=== PATIENT | female | born 1970 | race Caucasian/White ===

== ENCOUNTER 2019-05-20 01:57 | Emergency (ER) | payer BC ==
[2019-05-20] MEDS ORDERED: Acetaminophen/HYDROcodone 325-5 MG Tab PO ONE (01:58)
[2019-05-20] MEDS ORDERED: Ketorolac 60 MG/2 ML SDV IM ONE (02:23)
[2019-05-20] MEDS ORDERED: methylPREDNISolone Sodium Succinate 125 MG/2 ML SDV IM STA (02:23)
[2019-05-20] MEDS ORDERED: Ondansetron 4 MG Tab.DIS PO ONE (02:23)
[2019-05-20] MEDS ORDERED: Morphine 4 MG/ML Syringe IM ONE (02:23)
[2019-05-20] MEDS ORDERED: Take Home: Acetaminophen/HYDROcodone 325-5 MG, 2 Tab Pack PO ONE (02:28)
[2019-05-20] MEDS ORDERED: Morphine 2 MG/ML Syringe IM ONE (02:32)
--- NOTE | 2019-05-20 02:32 | EDM.PDOC ---
ED HPI GENERAL MEDICAL PROBLEM - General Chief Complaint: General Stated Complaint: PINCHED NERVE IN BACK Time Seen by Provider: 05/20/19 02:15 Source of Information: Reports: Patient History Limitations: Reports: No Limitations - History of Present Illness INITIAL COMMENTS - FREE TEXT/NARRATIVE: This patient is a 48 year old female that presents to the ER. Patient reports that over the last couple of days she has had some pain in her lower central back that radiates a numb sensation pain to the bilateral hip/buttock region and into the right thigh region to the right frontal leg. Patient reports that the pain this morning and last night has been much worse. She reports just driving in a car this evening for 4 hours. She reports during this and afterwards the pain was worse. Patient is in standing position and does appear to be in pain. Patient reports she also has had some right foot pain the last week and has been favoring the right foot and believes this is the reason for her back pain due to walking to favor that foot. She denies street, dizziness, n, v , d, f, urinary/bowel incontinence or changes. She denies numbness/tingling sensation around the rectum to indicate saddle parathesia. 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 Right Lower Back Pain Score (Numeric/FACES): 8 - Related Data Allergies Allergy/AdvReac Type Severity Reaction Status Date / Time Sulfa (Sulfonamide Allergy Hives Verified 05/20/19 02:01 Antibiotics) Home Meds: Home Meds Albuterol [Ventolin 2 MG/5 ML] 1 ampule INH ASDIRECTED PRN 05/20/19 [History] Escitalopram Oxalate [Lexapro] 30 mg PO DAILY 05/20/19 [History] Fluticasone/Salmeterol [Advair 250-50 Diskus] 1 inh INH ASDIRECTED 05/20/19 [ History] Methylphenidate HCl [Ritalin] 30 mg PO DAILY 05/20/19 [History] Montelukast Sodium [Singulair] 10 mg PO DAILY 05/20/19 [History] Omeprazole Magnesium [Prilosec Otc] 20 mg PO DAILY 05/20/19 [History] Valsartan [Diovan] 160 mg PO DAILY 05/20/19 [History] buPROPion [Wellbutrin SR] 450 mg PO DAILY 05/20/19 [History] Past Medical History Cardiovascular History: Reports: Hypertension Respiratory History: Reports: Asthma Gastrointestinal History: Reports: Diverticulosis Psychiatric History: Reports: Depression - Past Surgical History GI Surgical History: Reports: Other (See Below) Other GI Surgeries/Procedures: BOWELL RESECTION Female Surgical History: Reports: Hysterectomy, Lithotripsy/ESWL Social & Family History - Tobacco Use Smoking Status *Q: Current Every Day Smoker Years of Tobacco use: 20 Packs/Tins Daily: 0.3 - Caffeine Use Caffeine Use: Reports: None - Recreational Drug Use Recreational Drug Use: No ED ROS GENERAL - Review of Systems Review Of Systems: See Below Constitutional: Reports: No Symptoms HEENT: Reports: No Symptoms Respiratory: Reports: No Symptoms Cardiovascular: Reports: No Symptoms Endocrine: Reports: No Symptoms GI/Abdominal: Reports: No Symptoms : Reports: No Symptoms. Denies: Dysuria, Flank Pain, Frequency, Hematuria, Incontinence, Pain, Urgency, Urinary Retention Musculoskeletal: Reports: Back Pain, Leg Pain (right anterior with numbness. as she describes as muscle pain.), Foot Pain (right mild, but improved. ). Denies : Neck Pain, Shoulder Pain, Arm Pain, Hand Pain, Joint Pain, Joint Swelling, Muscle Stiffness Skin: Reports: No Symptoms Neurological: Reports: Numbness (right buttock/hip), Tingling (right buttock/hip ). Denies: Confusion, Dizziness, Headache, Tremors, Trouble Speaking, Difficulty Walking, Weakness, Change in Speech, Gait Disturbance Psychiatric: Reports: No Symptoms Hematologic/Lymphatic: Reports: No Symptoms Immunologic: Reports: No Symptoms ED EXAM, GENERAL - Physical Exam Exam: See Below Exam Limited By: No Limitations General Appearance: Alert, WD/WN, No Apparent Distress Eye Exam: Bilateral Eye: Normal Inspection Ears: Normal External Exam Nose: Normal Inspection Throat/Mouth: Normal Lips Head: Atraumatic, Normocephalic Neck: Normal Inspection, Supple, Non-Tender, Full Range of Motion Respiratory/Chest: No Respiratory Distress, Lungs Clear, Normal Breath Sounds, No Accessory Muscle Use Cardiovascular: Normal Peripheral Pulses, Regular Rate, Rhythm, No Edema, No Gallop, No JVD, No Murmur, No Rub Peripheral Pulses: 2+: Radial (L), Radial (R), Popliteal (L), Popliteal (R), Posterior Tibial (L), Posterior Tibial (R), Dorsalis Pedis (L), Dorsalis Pedis ( R) GI/Abdominal: Soft, Non-Tender, No Abnormal Bruit, Pelvis Stable (Female) Exam: Deferred Rectal (Female) Exam: Deferred Back Exam: Normal Inspection, Full Range of Motion, Paraspinal Tenderness ( right lumbar). No: CVA Tenderness (L), CVA Tenderness (R), Decreased Range of Motion, Muscle Spasm, Vertebral Tenderness Extremities: Normal Inspection, Normal Range of Motion, No Pedal Edema, Normal Capillary Refill, Other (mild tenderness right buttock. ). No: Limited Range of Motion Neurological: Alert, Oriented, Normal Cognition, Normal Gait, Normal Reflexes, No Motor/Sensory Deficits Psychiatric: Normal Affect, Anxious Skin Exam: Warm, Dry, Intact, Normal Color, No Rash Lymphatic: No Adenopathy Course - Vital Signs Last Recorded V/S: Last Vital Signs Temp 96.1 F 05/20/19 01:57 Pulse 98 05/20/19 01:57 Resp 18 05/20/19 01:57 BP Pulse Ox 96 05/20/19 01:57 - Orders/Labs/Meds Meds: Medications Discontinued Medications Generic Name Dose Route Start Last Admin Trade Name Beth PRN Reason Stop Dose Admin Hydrocodone Bitart/Acetaminophen 1 packet 05/20/19 02:28 05/20/19 02:41 Take Home: Acetaminophen/Hydrocod, 2 Tab Pack PO 05/20/19 02:29 1 packet ONETIME ONE Administration Ketorolac Tromethamine 60 mg 05/20/19 02:23 05/20/19 02:29 Toradol IM 05/20/19 02:24 60 mg ONETIME ONE Administration Methylprednisolone Sodium Succinate 125 mg 05/20/19 02:23 05/20/19 02:29 Solu-Medrol IM 05/20/19 02:24 125 mg NOW STA Administration Morphine Sulfate 4 mg 05/20/19 02:32 05/20/19 02:40 Morphine IM 05/20/19 02:33 4 mg ONETIME ONE Administration Morphine Sulfate Confirm 05/20/19 02:42 05/20/19 02:40 Morphine Administered 05/20/19 02:43 Not Given Dose 4 mg .ROUTE .STK-MED ONE Ondansetron HCl 4 mg 05/20/19 02:23 05/20/19 02:30 Zofran Odt PO 05/20/19 02:24 4 mg ONETIME ONE Administration Departure - Departure Time of Disposition: 02:41 Disposition: Home, Self-Care 01 Condition: Fair Clinical Impression: Sciatica associated with disorder of lumbar spine - Discharge Information *PRESCRIPTION DRUG MONITORING PROGRAM REVIEWED*: No *COPY OF PRESCRIPTION DRUG MONITORING REPORT IN PATIENT JUDI: No Instructions: Acute Back Pain, Adult, Sciatica, Radicular Pain Referrals: PCP,None [Primary Care Provider] - Forms: ED Department Discharge Additional Instructions: Followup with your primary care provider Return to the ER for worsening of condition or any emergent concerns Ice to the area Exercises No prolonged sitting [place] 5/325mg 1-2 pills every 4-6 hours as needed for pain #12 no refill: #2 take home Flexeril 10mg 1 pill every 8 hours as needed for muscle spasm #21 no refill Medrol Dose Pack as directed #1 no refill May take IbuProfen over the counter for pain - Assessment/Plan Plan: PLEASE SEE RN NOTE FOR PFSH.
[2019-05-20] MEDS ORDERED: Morphine 2 MG/ML Syringe ONE (02:42)
== END 2019-05-20 03:03 | disposition home or self-care (01) ==
LOC: CC.ED 01:57
DX: M54.41 Lumbago with sciatica, right side (principal); M54.42 Lumbago with sciatica, left side; I10 Essential (primary) hypertension; F17.210 Nicotine dependence, cigarettes, uncomplicated; F32.9 Major depressive disorder, single episode, unspecified; Z79.899 Other long term (current) drug therapy; Z88.2 Allergy status to sulfonamides
CPT/HCPCS: 96372; 99283; A9270-GY; J1885; J2270; J2930